=== PATIENT | male | born 1955 | race Caucasian/White ===

== ENCOUNTER → 2016-07-16 | Day surgery (SDC) | payer MEDICARE ==
[~2016-07-16] MED LIST: ACETAMINOOPHEN-1 TAB PO; AGGRENOX1 CAP PO; AMARYL PO; ASPIRIN EC81 M1 PO; ASPIRIN81 M2 PO; AUGMENTIN875 M1 PO; AVELOX400 M1 PO; B6100 MG PO; BAYER CHEWABLE81 MG PO; CENTRUM SILVER PO; CLOPIDOGREL75 MG PO; DIPYRIDAMOLE50 MG PO; FLOMAX0.4 M1 PO; FOLBIC RF TABL1 EACH PO; GABAPENTIN300 MG PO; HEALTHY HEART1 EACH PO; HYDROCHLOROTHIA25 MG PO; LANTUS SOL100 UNIT/1 SUBQ; LISINOPRIL10 MG PO; LISINOPRIL5 MG PO; METFORMIN HCL500 M2 PO; METFORMIN HCL500 M4 PO; MULTI VITAMIN1 EACH PO; PERCOCET PO; PERSANTINE50 MG PO; PYRIDIUM PO; SIMVASTATIN20 MG PO; TRADJENTA5 MG PO; VICODIN PO; VITAMIN B 12; VITAMIN B 6
--- NOTE | ~2016-07-16 | OR ---
Unit #: [id number] #: [id number] Patient: KATLIN LANDRY [id number] [address] [place], [place] [address] [id number] O MR#: [id number] NAME: KATLIN LANDRY ROOM: Date of Procedure: 07/16/2016 Admission Date: 07/16/2016 Surgeon: Larry Soto M.D. : 1955 Attending Physician: Larry Soto M.D. Referring Physician: Larry Soto M.D. Primary Care Physician: Adarsh Jung M.D. OPERATIVE REPORT PREOPERATIVE DIAGNOSIS Recurrent small bladder tumor. POSTOPERATIVE DIAGNOSES Recurrent small bladder tumor with large tumor, left renal pelvis. PROCEDURES PERFORMED 1. Cystourethroscopy with transurethral resection of bladder tumor small and biopsies. 2. Bilateral retrograde ureteropyelogram. 3. Interpretation of retrogrades. 4. Left rigid ureteroscopy with aspiration of urine for culture and cytology, multiple biopsies of tumor, stent placement. ANESTHESIA General with local supplementation. 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 DESCRIPTION OF PROCEDURE The patient was given preoperative antibiotics and satisfactory general anesthesia. In the dorsal lithotomy position, routine prep and drape were performed. A 21-Marshallese rigid cystoscope was introduced with a 30-degree lens and video noting a healthy anterior urethra. Minimal BPH and bladder consistent with history namely scarring around the left ureteral orifice, which was widely patent and refluxing due to previous resection, areas of redness on the high and low posterior wall, and small tumor on the left wall of the bladder near the bladder neck. The posterior wall areas were cold cup biopsied and using the 24-Marshallese resectoscope, the lesion near the bladder neck was removed with the cutting loop. The rollerball was then applied to all mucosal edges with complete hemostasis. After irrigating out the bladder multiple times, a right retrograde was performed with 50% contrast showing a delicate upper systems, normal ureter with no filling defects, and prompt drainage. The left retrograde was required first demonstration of the distal ureter with a Sybil Unit #: [id number] #: [id number] Patient: KATLIN LANDRY catheter. Then advancing the Pollack catheter over a guidewire to allow the contrast to flow retrograde into the renal pelvis, where it was seen to be moderately dilated with a large tumor obstructing the ureteropelvic junction area. The ureter itself below this level appeared normal. At this point, having spoken with the patient's girlfriend, we proceeded with ureteroscopy. I placed a first guidewire and a second guidewire with the dual-lumen catheter, then advanced the rigid ureteroscope easily up to the level of the tumor, which was biopsied with flexible ureteroscopic biopsy forceps 3 times after first photographing the lesion. A 26 x 6 double-J stent was then placed. The bladder drained. The cystoscope removed. The stent string secured to the dorsum of the penis and Uro-jet applied. Dictated by... Larry Soto M.D. ALLYSON/nam TD: 07/17/2016 02:22 JOB #: [id number] OPERATIVE REPORT Page 1 of 1 X Larry Soto MD X PROCEDURE OPERATIVE NOTE
--- NOTE | ~2016-07-16 | EKG ---
PATIENT: KATLIN LANDRY UNIT #: [id number] Ventricular Rate: 76 BPM Atrial Rate: 76 BPM P-R Interval: 150 ms QRS Duration: 88 ms Q-T Interval: 404 ms QTC Calculation(Bezet): 454 ms P [place]: 65 degrees Calculated R [place]: 52 degrees Calculated T [place]: 88 degrees Diagnosis Line: Sinus rhythm with frequent Premature ventricular Diagnosis Line: complexes Diagnosis Line: Nonspecific T wave abnormality Diagnosis Line: Abnormal ECG Diagnosis Line: When compared with ECG of 12-SEP-2014 08:24, Diagnosis Line: Premature ventricular complexes are now Present Diagnosis Line: Nonspecific T wave abnormality now evident in Diagnosis Line: Anterolateral leads Diagnosis Line: Confirmed by HEIDI GALICIA MD ([id number]) on 07/16/2016 Diagnosis Line: 7:21:09 PM INTERPRETING MD: FRIDA SEQUEIRA
[2016-07-16 07:53] LABS: CREATININE SERUM 1.2 mg/dL (0.6-1.4); GLOM FILT RATE Estimated 65.8 mL/min (>60)
== END | disposition home or self-care (01) ==
LOC: CSUR 06:21
PROVIDERS: Urology
DX: C67.4 Malignant neoplasm of posterior wall of bladder (principal); D09.0 Carcinoma in situ of bladder; N28.89 Other specified disorders of kidney and ureter; E11.9 Type 2 diabetes mellitus without complications; I10 Essential (primary) hypertension; E78.5 Hyperlipidemia, unspecified; F17.210 Nicotine dependence, cigarettes, uncomplicated; Z86.73 Personal history of transient ischemic attack (TIA), and cerebral infarction without residual deficits; Z79.82 Long term (current) use of aspirin; Z79.899 Other long term (current) drug therapy; Z98.890 Other specified postprocedural states
CPT/HCPCS: 80048; 82947; 87070; 87077; 87186; 87205; 88108; 88305; 93005; C2617; J0330; J0690; J2250; J2405; J3010

== ENCOUNTER → 2016-07-23 | Outpatient (CLI) | payer MEDICARE ==
--- NOTE | ~2016-07-23 | XA166 ---
[facility] A Service of [facility] & [facility] RADIOLOGY TEXT RESULTS PATIENT: KATLIN LANDRY LOCATION: CIVR : 59 UNIT #: [id number] AGE: [address]: Larry Soto MD SEX: M ORDER DR: [id number] [place] [id number] [facility]. [place], [place] [address] [id number] O MR#: [id number] Acc #: [id number] NAME: KATLIN LANDRY : 1955 SEX: M STUDY DATE/TIME: 07/23/2016 8:21 UNIT: [facility] ROOM: STUDY DESCRIPTION: XA PICC Line Placement WO Port Attending Physician: Larry Soto M.D. Ordering Physician: Larry Stoo M.D. Primary Care Physician: Adarsh Jung M.D. MEDICAL IMAGING REPORT This report is preliminary unless electronic signature is present EXAM PICC line insertion. DATE 07/23/2016 HISTORY IV access needed. PRE-PROCEDURE The procedure was explained to the patient and/or patient entry level account representative including risks, benefits, potential complications and potential for alternative forms of treatment. Informed consent was obtained, and prior to initiating the procedure a formal timeout procedure was performed. PROCEDURE Using full standard sterile barrier technique, including caps, gowns, gloves, masks, as well as sterile skin preparation and standard sterile draping, the right arm was prepped and draped in the usual fashion, and real-time sterile ultrasound guidance was used to localize an arm vein and to confirm vessel patency. A hard copy ultrasound image was recorded. After local anesthesia with 1% Xylocaine, the vein was punctured using real-time sterile ultrasound guidance, and an 0.018 guidewire was advanced into the superior vena cava, using fluoroscopic guidance. A 4-Thai single-lumen PICC was then measured and deployed with the tip positioned in the superior vena cava. The position of the line was documented with a radiographic image. The line was secured in place with an adhesive dressing and an antibiotic patch was applied. Total fluoro time was 0.2 minutes. Single fluoroscopic spot image obtained. IMPRESSION ST[facility] A Service of [facility] & [facility] RADIOLOGY TEXT RESULTS PATIENT: KATLIN LANDRY LOCATION: [facility] #: [id number] : [birth year] UNIT #: [id number] AGE: [address]: Larry Soto MD SEX: M ORDER DR: Successful placement of a 4-Thai single-lumen PowerPICC via the arm under ultrasound and fluoroscopic guidance. The tip of the PICC is in good position in the superior vena cava. Dictated by... Jani Quiroz M.D. THIS IS AN ELECTRONICALLY VERIFIED REPORT Jani Quiroz M.D. at 07/27/2016 3:57 PM EMMY/tiara TD: 07/26/2016 12:37 JOB #: [id number] MEDICAL IMAGING REPORT Page 1 of 1 COPY
== END | disposition home or self-care (01) ==
LOC: CIVR 08:05
PROC: 02HV33Z Insertion of Infusion Device into Superior Vena Cava, Percutaneous Approach (ICD-10-PCS; principal; 2016-07-23)
DX: Z45.2 Encounter for adjustment and management of vascular access device (principal); N28.89 Other specified disorders of kidney and ureter; Z79.2 Long term (current) use of antibiotics
CPT/HCPCS: 76937; 77001; 96374; C1751; J0696; J1642

== ENCOUNTER → 2016-07-24 | Outpatient (CLI) | payer MEDICARE | END | disposition home or self-care (01) | LOC: CSSDAY 06:55 | DX: N39.0 Urinary tract infection, site not specified (principal); Z79.2 Long term (current) use of antibiotics; Z95.828 Presence of other vascular implants and grafts | CPT/HCPCS: 96374; J0696 ==

== ENCOUNTER → 2016-07-25 | Outpatient (CLI) | payer MEDICARE | END | disposition home or self-care (01) | LOC: CSSDAY 06:55 | DX: N39.0 Urinary tract infection, site not specified (principal); Z79.2 Long term (current) use of antibiotics; Z95.828 Presence of other vascular implants and grafts | CPT/HCPCS: 96374; J0696 ==

== ENCOUNTER → 2016-07-26 | Outpatient (CLI) | payer MEDICARE | END | disposition home or self-care (01) | LOC: CSSDAY 07:22 | DX: N39.0 Urinary tract infection, site not specified (principal); Z79.2 Long term (current) use of antibiotics | CPT/HCPCS: 96374; J0696 ==

== ENCOUNTER → 2016-07-27 | Outpatient (CLI) | payer MEDICARE | END | disposition home or self-care (01) | LOC: CSSDAY 06:53 | DX: N39.0 Urinary tract infection, site not specified (principal); Z79.2 Long term (current) use of antibiotics; N28.89 Other specified disorders of kidney and ureter | CPT/HCPCS: 74178; 96374; J0696; Q9967 ==

== ENCOUNTER → 2016-07-28 | Outpatient (CLI) | payer MEDICARE | END | disposition home or self-care (01) | LOC: CSSDAY 06:58 | DX: N39.0 Urinary tract infection, site not specified (principal); Z79.2 Long term (current) use of antibiotics; N28.89 Other specified disorders of kidney and ureter; Z95.828 Presence of other vascular implants and grafts | CPT/HCPCS: 96374; J0696 ==

== ENCOUNTER → 2016-07-29 | Outpatient (CLI) | payer MEDICARE | END | disposition home or self-care (01) | LOC: CSSDAY 07:05 | DX: N39.0 Urinary tract infection, site not specified (principal); Z79.2 Long term (current) use of antibiotics; Z95.828 Presence of other vascular implants and grafts | CPT/HCPCS: 96374; J0696 ==

== ENCOUNTER → 2016-07-30 | Outpatient (CLI) | payer MEDICARE | END | disposition home or self-care (01) | LOC: CSSDAY 07:09 | DX: N39.0 Urinary tract infection, site not specified (principal); Z79.2 Long term (current) use of antibiotics; Z95.828 Presence of other vascular implants and grafts | CPT/HCPCS: 96374; 96375; J0696 ==

== ENCOUNTER → 2016-07-31 | Outpatient (CLI) | payer MEDICARE | END | disposition home or self-care (01) | LOC: CSSDAY 07:13 | DX: N39.0 Urinary tract infection, site not specified (principal); Z79.2 Long term (current) use of antibiotics; Z95.828 Presence of other vascular implants and grafts | CPT/HCPCS: 96374; J0696 ==

== ENCOUNTER → 2016-08-01 | Outpatient (CLI) | payer MEDICARE | END | disposition home or self-care (01) | LOC: CSSDAY 07:26 | DX: N39.0 Urinary tract infection, site not specified (principal); Z79.2 Long term (current) use of antibiotics; Z95.828 Presence of other vascular implants and grafts | CPT/HCPCS: 96374; J0696 ==

== ENCOUNTER → 2016-08-25 | Outpatient (CLI) | payer OTHER ==
[2016-08-25 11:53] LABS: BUN/CREATININE RATIO 17.5; CALCIUM SERUM 9.1 mg/dL (8.4-10.2); CREATININE SERUM 1.2 mg/dL (0.6-1.4); GLOM FILT RATE Estimated 65.8 mL/min (>60); POTASSIUM 3.7 mmol/L (3.5-5.1)
== END | disposition home or self-care (01) ==
LOC: CAMB 09:43
PROVIDERS: Urology
DX: Z01.812 Encounter for preprocedural laboratory examination (principal); N28.89 Other specified disorders of kidney and ureter
CPT/HCPCS: 36415; 80048

== ENCOUNTER → 2016-08-27 | Day surgery (SDC) | payer OTHER ==
--- NOTE | ~2016-08-27 | OR ---
Unit #: [id number] #: [id number] Patient: KATLIN LANDRY [id number] [address] [place], [place] [address] [id number] O MR#: [id number] NAME: KATLIN LANDRY ROOM: Date of Procedure: 08/27/2016 Admission Date: 08/27/2016 Surgeon: Larry Soto M.D. : 1955 Attending Physician: Larry Soto M.D. Primary Care Physician: Adarsh Jung M.D. PROCEDURE OPERATIVE NOTE PREOPERATIVE DIAGNOSIS Left renipelvic tumor, obstructing. POSTOPERATIVE DIAGNOSIS Left renipelvic tumor, obstructing. PROCEDURE PERFORMED Cystoscopy and left stent exchange. ANESTHESIA General. INDICATIONS This 61-year-old man had ureteroscopy with stent placement with an external tether regarding an obstructing left renal mass. Rather than proceeding to nephroureterectomy after appropriate diagnosis, he is noted to have adenopathy and is best treated with preempted chemotherapy. Thus, his stent needs to be internalized and exchange is indicated. DESCRIPTION OF PROCEDURE The patient was given preoperative Kefzol and satisfactory general anesthesia. In the dorsal lithotomy position, routine prep and drape were performed. The 21-Ivorian rigid cystoscope was introduced with the 30-degree lens and video. Cloudy urine was drained from the bladder and sent for culture. The bladder was examined and other than stent cystitis around the orifice there was no evidence of neoplasia in the bladder. The stent curl lay in good position. The stent was extracted with the tether and a Pollack catheter passed up the ureter. A Sensor guidewire was placed. An identical 6 x 26 cm stent was placed in identical position cystoscopically and fluoroscopically. The bladder was drained. The cystoscope removed and a Uro-jet applied. Cultures will be followed up. The patient is to start chemo next week with nephroureterectomy in approximately three months. Dictated by... Larry Soto M.D. ALLYSON/martin TD: 08/27/2016 11:30 Unit #: [id number] #: [id number] Patient: KATLIN LANDRY JOB #: [id number] PROCEDURE OPERATIVE NOTE Page 1 of 1 X Larry Soto MD PROCEDURE OPERATIVE NOTE
[2016-08-27 09:47] LABS: URINE SOURCE CATH
[2016-08-27 09:57] LABS: URINE APPEARANCE CLOUDY; URINE BILIRUBIN NEG (NEG); URINE BLOOD 1+ (NEG); URINE COLOR YELLOW; URINE GLUCOSE 500 MG/DL (NEG); URINE KETONE NEG (NEG); URINE LEUKOCYTE ESTERASE 3+ (NEG); URINE NITRATE POS (NEG); URINE PH 5.5 (5-8); URINE PROTEIN 1+ (NEG); URINE SPECIFIC GRAVITY 1.014 (1.003-1.035); URINE UROBILINOGEN 0.2 MG/DL (NEG)
[2016-08-27 10:02] LABS: URINE BACTERIA AUWI 1+ (NEGATIVE); URINE SQUAMOUS EPITHELIAL CELL NONE SEEN /[HPF]; UWBCS1 AUWI INNUM (0-5)
== END | disposition home or self-care (01) ==
LOC: CSUR 06:01
PROVIDERS: Urology
DX: D49.512 Neoplasm of unspecified behavior of left kidney (principal); I10 Essential (primary) hypertension; E11.9 Type 2 diabetes mellitus without complications; K21.9 Gastro-esophageal reflux disease without esophagitis; M19.90 Unspecified osteoarthritis, unspecified site; F17.210 Nicotine dependence, cigarettes, uncomplicated; Z86.73 Personal history of transient ischemic attack (TIA), and cerebral infarction without residual deficits; Z88.8 Allergy status to other drugs, medicaments and biological substances; Z79.82 Long term (current) use of aspirin; Z79.84 Long term (current) use of oral hypoglycemic drugs; Z79.899 Other long term (current) drug therapy; Z98.890 Other specified postprocedural states
CPT/HCPCS: 81003; 82947; 87086; 87088; 87186; C2617; J0690; J2250; J3010

== ENCOUNTER → 2016-10-07 | Outpatient (CLI) | payer OTHER ==
--- NOTE | ~2016-10-07 | XA166 ---
[facility] A Service of [facility] RADIOLOGY TEXT RESULTS PATIENT: KATLIN LANDRY LOCATION: CIVR : 59 UNIT #: [id number] AGE: [address]: Larry Soto MD SEX: M ORDER DR: [id number] [facility] [address] [place], [place] [address] [id number] O MR#: [id number] Acc #: [id number] NAME: KATLIN LANDRY : 1955 SEX: M STUDY DATE/TIME: 10/07/2016 7:20 UNIT: CIVR ROOM: STUDY DESCRIPTION: XA PICC Line Placement WO Port Attending Physician: Larry Soto M.D. Referring Physician: Larry Soto M.D. Ordering Physician: Larry Soto M.D. Primary Care Physician: Adarsh Jung M.D. MEDICAL IMAGING REPORT This report is preliminary unless electronic signature is present EXAM Right side PICC line placement. INDICATION Need for IV access for IV antibiotics in a patient with a history of renal cell cancer. PRE-PROCEDURE The procedure was explained to the patient and/or patient sales representative door to door including risks, benefits, potential complications and potential for alternative forms of treatment. Informed consent was obtained, and prior to initiating the procedure a formal timeout procedure was performed. PROCEDURE Using full standard sterile barrier technique, including caps, gowns, gloves, masks, as well as sterile skin preparation and standard sterile draping, the right arm was prepped and draped in the usual fashion, and real-time sterile ultrasound guidance was used to localize an arm vein and to confirm vessel patency. A hard copy ultrasound image was recorded. After local anesthesia with 1% Xylocaine, the vein was punctured using real-time sterile ultrasound guidance, and an 0.018 guidewire was advanced into the superior vena cava, using fluoroscopic guidance. A 4-Uruguayan single-lumen PICC was then measured and deployed with the tip positioned in the superior vena cava. The position of the line was documented with a radiographic image. The line was secured in place with an adhesive dressing and an antibiotic patch was applied. Total fluoro time was 0.1 minutes. AK was 1 mGy. IMPRESSION Successful placement of a 4-Uruguayan single-lumen PowerPICC via the arm under ultrasound and fluoroscopic guidance. The tip of the PICC is in good position in the superior vena cava. [facility] A Service of [facility] RADIOLOGY TEXT RESULTS PATIENT: KATLIN LANDRY LOCATION: [facility] : [birth year] UNIT #: [id number] AGE: [address]: Larry Soto MD SEX: M ORDER DR: Dictated by... Yolanda Rey M.D. THIS IS AN ELECTRONICALLY VERIFIED REPORT Yolanda Rey M.D. at 10/07/2016 5:11 PM AFF/tiara TD: 10/07/2016 14:16 JOB #: [id number] MEDICAL IMAGING REPORT Page 1 of 1 COPY
== END | disposition home or self-care (01) ==
LOC: CIVR 07:20
DX: N39.0 Urinary tract infection, site not specified (principal); Z45.2 Encounter for adjustment and management of vascular access device
CPT/HCPCS: 76937; 77001; 96365; C1751; J0692; J1642

== ENCOUNTER → 2016-10-08 | Outpatient (CLI) | payer OTHER | END | disposition home or self-care (01) | LOC: CSSDAY 07:18 | DX: N39.0 Urinary tract infection, site not specified (principal); Z79.2 Long term (current) use of antibiotics | CPT/HCPCS: 96365; J0692 ==

== ENCOUNTER → 2016-10-09 | Outpatient (CLI) | payer OTHER | END | disposition home or self-care (01) | LOC: CSSDAY 07:14 | DX: N39.0 Urinary tract infection, site not specified (principal); Z79.2 Long term (current) use of antibiotics | CPT/HCPCS: 96365; J0692 ==

== ENCOUNTER → 2016-10-10 | Outpatient (CLI) | payer OTHER | END | disposition home or self-care (01) | LOC: CSSDAY 06:56 | DX: N39.0 Urinary tract infection, site not specified (principal); Z79.2 Long term (current) use of antibiotics | CPT/HCPCS: 96365; J0692 ==

== ENCOUNTER → 2016-10-11 | Outpatient (CLI) | payer OTHER | END | disposition home or self-care (01) | LOC: CSSDAY 07:31 | DX: N39.0 Urinary tract infection, site not specified (principal); Z79.2 Long term (current) use of antibiotics | CPT/HCPCS: 96365; J0692 ==

== ENCOUNTER → 2016-10-12 | Outpatient (CLI) | payer OTHER | END | disposition home or self-care (01) | LOC: CSSDAY 07:18 | DX: N39.0 Urinary tract infection, site not specified (principal); Z79.899 Other long term (current) drug therapy | CPT/HCPCS: 96365; 96366; J0692 ==

== ENCOUNTER → 2016-10-13 | Outpatient (CLI) | payer OTHER | END | disposition home or self-care (01) | LOC: CSSDAY 10-12 10:00 | DX: N39.0 Urinary tract infection, site not specified (principal); Z79.2 Long term (current) use of antibiotics; Z95.828 Presence of other vascular implants and grafts | CPT/HCPCS: 96365; J0692 ==

== ENCOUNTER → 2016-10-14 | Outpatient (CLI) | payer OTHER | END | disposition home or self-care (01) | LOC: CSSDAY 07:18 | DX: N39.0 Urinary tract infection, site not specified (principal); Z79.2 Long term (current) use of antibiotics; Z95.828 Presence of other vascular implants and grafts | CPT/HCPCS: 96365; J0692 ==

== ENCOUNTER → 2016-10-15 | Outpatient (CLI) | payer OTHER | END | disposition home or self-care (01) | LOC: CSSDAY 07:40 | DX: N39.0 Urinary tract infection, site not specified (principal); Z79.2 Long term (current) use of antibiotics; Z95.828 Presence of other vascular implants and grafts | CPT/HCPCS: 96365; J0692 ==

== ENCOUNTER → 2016-10-16 | Outpatient (CLI) | payer OTHER | END | disposition home or self-care (01) | LOC: CSSDAY 07:20 | DX: N39.0 Urinary tract infection, site not specified (principal); Z79.2 Long term (current) use of antibiotics | CPT/HCPCS: 96365; J0692 ==

== ENCOUNTER → 2016-10-17 | Outpatient (CLI) | payer OTHER | END | disposition home or self-care (01) | LOC: CSSDAY 07:25 | DX: N39.0 Urinary tract infection, site not specified (principal) | CPT/HCPCS: 96365; J0692 ==

== ENCOUNTER → 2016-10-18 | Outpatient (CLI) | payer OTHER | END | disposition home or self-care (01) | LOC: CSSDAY 07:15 | DX: N39.0 Urinary tract infection, site not specified (principal); Z79.2 Long term (current) use of antibiotics | CPT/HCPCS: 96365; J0692 ==

== ENCOUNTER → 2016-10-19 | Outpatient (CLI) | payer OTHER | END | disposition home or self-care (01) | LOC: CSSDAY 07:46 | DX: N39.0 Urinary tract infection, site not specified (principal); Z79.2 Long term (current) use of antibiotics | CPT/HCPCS: 96365; J0692 ==

== ENCOUNTER → 2016-10-20 | Outpatient (CLI) | payer OTHER | END | disposition home or self-care (01) | LOC: CSSDAY 07:43 | DX: N39.0 Urinary tract infection, site not specified (principal); Z79.2 Long term (current) use of antibiotics | CPT/HCPCS: 96365; J0692 ==

== ENCOUNTER → 2016-10-21 | Outpatient (CLI) | payer OTHER | END | disposition home or self-care (01) | LOC: CSSDAY 07:42 | DX: N39.0 Urinary tract infection, site not specified (principal); Z79.2 Long term (current) use of antibiotics | CPT/HCPCS: 96365; J0692 ==

== ENCOUNTER → 2016-10-22 | Outpatient (CLI) | payer OTHER | END | disposition home or self-care (01) | LOC: CSSDAY 07:18 | DX: N39.0 Urinary tract infection, site not specified (principal); Z79.2 Long term (current) use of antibiotics | CPT/HCPCS: 96365; J0692 ==

== ENCOUNTER → 2016-10-23 | Outpatient (CLI) | payer OTHER | END | disposition home or self-care (01) | LOC: CSSDAY 06:48 | DX: N39.0 Urinary tract infection, site not specified (principal); Z79.2 Long term (current) use of antibiotics | CPT/HCPCS: 96365; J0692 ==

== ENCOUNTER → 2016-10-24 | Outpatient (CLI) | payer OTHER | END | disposition home or self-care (01) | LOC: CSSDAY 06:58 | DX: N39.0 Urinary tract infection, site not specified (principal); Z79.2 Long term (current) use of antibiotics | CPT/HCPCS: 96365; J0692 ==

== ENCOUNTER → 2016-10-25 | Outpatient (CLI) | payer OTHER | END | disposition home or self-care (01) | LOC: CSSDAY 07:24 | DX: N39.0 Urinary tract infection, site not specified (principal); Z79.2 Long term (current) use of antibiotics; Z95.828 Presence of other vascular implants and grafts | CPT/HCPCS: 96365; J0692 ==

== ENCOUNTER → 2016-10-26 | Outpatient (CLI) | payer OTHER | END | disposition home or self-care (01) | LOC: CSSDAY 07:14 | DX: N39.0 Urinary tract infection, site not specified (principal); Z79.2 Long term (current) use of antibiotics; Z95.828 Presence of other vascular implants and grafts | CPT/HCPCS: 96365; J0692 ==

== ENCOUNTER → 2016-10-27 | Outpatient (CLI) | payer OTHER | END | disposition home or self-care (01) | LOC: CSSDAY 07:16 | DX: N39.0 Urinary tract infection, site not specified (principal); Z79.899 Other long term (current) drug therapy | CPT/HCPCS: 96365; J0692 ==

== ENCOUNTER → 2016-11-15 | Outpatient (CLI) | payer OTHER ==
--- NOTE | ~2016-11-15 | CT2 ---
[facility] A Service of [facility] RADIOLOGY TEXT RESULTS PATIENT: KATLIN LANDRY LOCATION: [facility] : 59 UNIT #: [id number] AGE: [address]: Larry Soto MD SEX: M ORDER DR: [id number] [facility] [address] [place], [place] [address] [id number] O MR#: [id number] Acc #: [id number] NAME: KATLIN LANDRY : 1955 SEX: M STUDY DATE/TIME: 11/15/2016 16:34 UNIT: [facility] ROOM: STUDY DESCRIPTION: CT Abd and Pelv W Cont Attending Physician: Larry Soto M.D. Referring Physician: Larry Soto M.D. Ordering Physician: Larry Soto M.D. Primary Care Physician: No Primary Care Physician MEDICAL IMAGING REPORT This report is preliminary unless electronic signature is present EXAM CT of abdomen and pelvis with contrast. INDICATIONS Left renal malignancy. Restaging prior to surgery. PROCEDURE Contrast-enhanced CT of the abdomen and pelvis. This CT exam was performed with one or more of the following radiation dose reduction techniques: automatic exposure control, adjustment of mA and/or kV according to patient size, and iterative reconstruction. COMPARISON 07/27/2016 FINDINGS Refer to separately dictated chest CT for thoracic findings. Liver is borderline enlarged at 18.5 cm. Probable hepatic steatosis. No liver or splenic mass. Redemonstration of an enhancing mass in the left renal pelvis with extension into the proximal left ureter. The mass measures up to 4 cm. It previously measured 3.3 cm. The left double-J stent remains in position. There is a mild left hydronephrosis not significantly changed from the previous CT. A few small retroperitoneal lymph nodes are not significantly changed. Bilateral adrenal nodules are not significantly changed on the right measuring 2 cm, on the left 1.2 cm. The pancreas and gallbladder are unremarkable. Bowel loops are nondilated. PELVIS WITH CONTRAST: No pelvic mass or adenopathy. No aggressive appearing bone lesion. [facility] A Service of [facility] RADIOLOGY TEXT RESULTS PATIENT: KATLIN LANDRY LOCATION: [facility] : 59 UNIT #: [id number] AGE: [address]: Larry Soto MD SEX: M ORDER DR: IMPRESSION 1. Interval increase in size of the left renal pelvis mass now measuring up to 4 cm, previously 3.3 cm. 2. No definitive evidence for metastatic disease in the abdomen or pelvis. Bilateral adrenal nodules were previously characterized as benign adenomas and are unchanged in size. 3. The left double-J stent remains in position. There is stable mild left hydronephrosis. 4. Borderline hepatomegaly with steatosis. Dictated by... Alexei Goldstein M.D. THIS IS AN ELECTRONICALLY VERIFIED REPORT Alexei Goldstein M.D. at 11/18/2016 7:09 AM CHIDI/amadeo TD: 11/16/2016 16:32 JOB #: [id number] MEDICAL IMAGING REPORT Page 1 of 1 COPY
--- NOTE | ~2016-11-15 | CT55 ---
[facility] A Service of [facility] RADIOLOGY TEXT RESULTS PATIENT: KATLIN LANDRY LOCATION: [facility] : 59 UNIT #: [id number] AGE: [address]: Larry Soto MD SEX: M ORDER DR: [id number] [facility] [address] [place], [place] [address] [id number] O MR#: [id number] Acc #: [id number] NAME: KATLIN LANDRY : 1955 SEX: M STUDY DATE/TIME: 11/15/2016 17:11 UNIT: [facility] ROOM: STUDY DESCRIPTION: CT Chest W Con Attending Physician: Larry Soto M.D. Referring Physician: Larry Soto M.D. Ordering Physician: Larry Soto M.D. Primary Care Physician: No Primary Care Physician MEDICAL IMAGING REPORT This report is preliminary unless electronic signature is present EXAM CT chest with contrast 11/15/2016 17:11 hours. HISTORY Patient with history of left renal cell carcinoma and treatment with chemotherapy for followup. Observation for suspected malignant neoplasm. No current chest complaints. COMPARISON CT abdomen 11/15/2016 and 07/27/2016. TECHNIQUE Dynamic helical CT images were obtained from the thoracic inlet through the adrenal glands. Sagittal and coronal reconstructions were performed. Contrast was Isovue-370 100 mL IV. Total exam DLP for the chest CT is 400 mGy-cm. This CT exam was performed with one or more of the following radiation dose reduction techniques: automatic exposure control, adjustment of mA and/or kV according to patient size, and iterative reconstruction. FINDINGS Images through the thoracic inlet demonstrate no thyroid mass or supraclavicular adenopathy. Images through the chest demonstrate fusiform aneurysmal dilatation of the ascending aorta measuring up to 4.3 cm without dissection. Aortic arch and descending thoracic aorta within normal limits. Cardiac chambers are normal. There is no pathologic adenopathy. No pericardial or pleural fluid. Lung window images are clear. There is no pulmonary metastasis. Calcified granulomas present at the left base. There are no effusions. [facility] A Service of [facility] RADIOLOGY TEXT RESULTS PATIENT: KATLIN LANDRY LOCATION: [facility] : 59 UNIT #: [id number] AGE: [address]: Larry Soto MD SEX: M ORDER DR: Please see CT abdomen and pelvis report for findings below the hemidiaphragms. IMPRESSION 1. No evidence of metastatic disease in the chest. 2. There is fusiform aneurysmal dilatation of the ascending aorta measuring up to 4.3 cm. No dissection. Dictated by... Bonita Gilliam M.D. THIS IS AN ELECTRONICALLY VERIFIED REPORT Bonita Gilliam M.D. at 11/16/2016 2:30 PM ROBE/jasmeet TD: 11/16/2016 13:28 JOB #: [id number] MEDICAL IMAGING REPORT Page 1 of 1 COPY
[2016-11-15 16:37] LABS: HEMATOCRIT 43.4 % (38.0-50.0); HEMOGLOBIN 14.9 gm/dL (13.0-16.0); MEAN CELL VOLUME 90.8 FL (83-96); MEAN CORPUSCULAR HEMOGLOBIN 31.2 PG (28-34); MEAN CORPUSCULAR HGB CONC 34.4 g/dL (30-36); MEAN PLATELET VOLUME 7.6 FL (6.5-11.5); RED BLOOD COUNT 4.77 X10e (3.90-5.60); RED CELL DISTRIBUTION WIDTH 14.5 % (11.0-15.5); WHITE BLOOD COUNT 7.2 X10e3 (4.0-10.5)
[2016-11-15 16:52] LABS: ALBUMIN SERUM 4.2 g/dL (3.5-5.0); BILIRUBIN,TOTAL 0.6 mg/dL (0.2-2.0); BUN/CREATININE RATIO 13.63; CALCIUM SERUM 9.8 mg/dL (8.4-10.2); CREATININE SERUM 1.1 mg/dL (0.6-1.4); GLOM FILT RATE Estimated 73.1 mL/min (>60); POTASSIUM 3.5 mmol/L (3.5-5.1); PROTEIN TOTAL SERUM 7.5 g/dL (6.0-8.3)
== END | disposition home or self-care (01) ==
LOC: CCAT 16:00
PROVIDERS: Urology
DX: N28.89 Other specified disorders of kidney and ureter (principal); I71.2 Thoracic aortic aneurysm, without rupture; E27.8 Other specified disorders of adrenal gland; N13.30 Unspecified hydronephrosis; K76.0 Fatty (change of) liver, not elsewhere classified; R16.0 Hepatomegaly, not elsewhere classified
CPT/HCPCS: 36415; 71260; 74177; 80053; 85027; Q9967

== ENCOUNTER → 2016-12-22 | Outpatient (CLI) | payer OTHER ==
--- NOTE | ~2016-12-22 | XA166 ---
[facility] A Service of [facility] RADIOLOGY TEXT RESULTS PATIENT: KATLIN LANDRY LOCATION: CIVR : 59 UNIT #: [id number] AGE: [address]: Larry Soto MD SEX: M ORDER DR: [id number] [facility] [address] [place], [place] [address] [id number] O MR#: [id number] Acc #: [id number] NAME: KATLIN LANDRY. : 1955 SEX: M STUDY DATE/TIME: 12/22/2016 12:31 UNIT: [facility] ROOM: STUDY DESCRIPTION: XA PICC Line Placement WO Port Attending Physician: Larry Soto M.D. Referring Physician: Larry Soto M.D. Ordering Physician: Larry Soto M.D. Primary Care Physician: Felipe Gray M.D. MEDICAL IMAGING REPORT This report is preliminary unless electronic signature is present EXAM PICC line insertion 12/22/2016 HISTORY IV access needed. PRE-PROCEDURE The procedure was explained to the patient and/or patient human resources hr representative including risks, benefits, potential complications and potential for alternative forms of treatment. Informed consent was obtained, and prior to initiating the procedure a formal timeout procedure was performed. PROCEDURE Using full standard sterile barrier technique, including caps, gowns, gloves, masks, as well as sterile skin preparation and standard sterile draping, the right arm was prepped and draped in the usual fashion, and real-time sterile ultrasound guidance was used to localize an arm vein and to confirm vessel patency. A hard copy ultrasound image was recorded. After local anesthesia with 1% Xylocaine, the vein was punctured using real-time sterile ultrasound guidance, and an 0.018 guidewire was advanced into the superior vena cava, using fluoroscopic guidance. A 4 Japanese single-lumen PICC was then measured and deployed with the tip positioned in the superior vena cava. The position of the line was documented with a radiographic image. The line was secured in place with an adhesive dressing and an antibiotic patch was applied. Total fluoro time was 0.1 minutes. IMPRESSION Successful placement of a 4 Japanese single-lumen Power PICC via the right arm under ultrasound and fluoroscopic guidance. The tip of the PICC is in good position in the superior vena cava. Single fluoroscopic spot image obtained. [facility] A Service of [facility] RADIOLOGY TEXT RESULTS PATIENT: KATLIN LANDRY LOCATION: [facility] : 59 UNIT #: [id number] AGE: [address]: Larry Soto MD SEX: M ORDER DR: Dictated by... Jani Quiroz M.D. THIS IS AN ELECTRONICALLY VERIFIED REPORT Jani Quiroz M.D. at 12/23/2016 2:06 PM EMMY/riccardo TD: 12/23/2016 13:30 JOB #: [id number] MEDICAL IMAGING REPORT Page 1 of 1 COPY
== END | disposition home or self-care (01) ==
LOC: CIVR 07:00
PROC: 05H533Z Insertion of Infusion Device into Right Subclavian Vein, Percutaneous Approach (ICD-10-PCS; principal; 2016-12-22)
DX: N39.0 Urinary tract infection, site not specified (principal); Z79.2 Long term (current) use of antibiotics
CPT/HCPCS: 76937; 77001; 96365; C1751; J0692

== ENCOUNTER → 2016-12-23 | Outpatient (CLI) | payer OTHER | END | disposition home or self-care (01) | LOC: CSSDAY 07:00 | DX: N39.0 Urinary tract infection, site not specified (principal); Z79.2 Long term (current) use of antibiotics; Z95.828 Presence of other vascular implants and grafts | CPT/HCPCS: 96365; J0692 ==

== ENCOUNTER → 2016-12-24 | Outpatient (CLI) | payer OTHER | END | disposition home or self-care (01) | LOC: CSSDAY 07:00 | DX: N39.0 Urinary tract infection, site not specified (principal); Z79.2 Long term (current) use of antibiotics; Z95.828 Presence of other vascular implants and grafts | CPT/HCPCS: 96365; J0692 ==

== ENCOUNTER → 2016-12-25 | Outpatient (CLI) | payer OTHER | END | disposition home or self-care (01) | LOC: CSSDAY 07:00 | DX: N39.0 Urinary tract infection, site not specified (principal); Z79.2 Long term (current) use of antibiotics; Z95.828 Presence of other vascular implants and grafts | CPT/HCPCS: 96365; J0692 ==

== ENCOUNTER → 2016-12-26 | Outpatient (CLI) | payer OTHER | END | disposition home or self-care (01) | LOC: CSSDAY 07:00 | DX: N39.0 Urinary tract infection, site not specified (principal); Z79.2 Long term (current) use of antibiotics; Z95.828 Presence of other vascular implants and grafts | CPT/HCPCS: 96365; J0692 ==

== ENCOUNTER → 2016-12-27 | Outpatient (CLI) | payer OTHER | END | disposition home or self-care (01) | LOC: CSSDAY 07:00 | DX: N39.0 Urinary tract infection, site not specified (principal); Z79.2 Long term (current) use of antibiotics; Z95.828 Presence of other vascular implants and grafts | CPT/HCPCS: 96365; J0692 ==

== ENCOUNTER → 2016-12-28 | Outpatient (CLI) | payer OTHER | END | disposition home or self-care (01) | LOC: CSSDAY 07:00 | DX: N39.0 Urinary tract infection, site not specified (principal); Z79.2 Long term (current) use of antibiotics; Z95.828 Presence of other vascular implants and grafts | CPT/HCPCS: 96365; J0692 ==

== ENCOUNTER → 2016-12-29 | Outpatient (CLI) | payer OTHER | END | disposition home or self-care (01) | LOC: CSSDAY 07:00 | DX: N39.0 Urinary tract infection, site not specified (principal); Z79.2 Long term (current) use of antibiotics | CPT/HCPCS: 96365; J0692 ==